=== PATIENT | female | born 1985 | race Caucasian/White ===

== ENCOUNTER 2017-06-12 10:17 | Emergency (ER) | payer MEDICAID ==
[2017-06-12 12:23] LABS: microscopic required? YES
[2017-06-12 12:24] LABS: urine erythrocyte TRACE (NEGATIVE)
[2017-06-12 13:54] VITALS: BP 113/85
== END 2017-06-12 13:54 | disposition home or self-care (01) ==
LOC: ED 10:17
PROVIDERS: Emergency Medicine
DX: N72 Inflammatory disease of cervix uteri (principal); Z79.3 Long term (current) use of hormonal contraceptives
CPT/HCPCS: 36415; 82962; 87491; 87591; J0696

== ENCOUNTER 2017-10-05 19:15 | Emergency (ER) | payer MEDICAID ==
[~2017-10-05] VITALS: Ht 162.6 cm; Wt 68.5 kg
[2017-10-05 19:26] VITALS: Ht 162.6 cm; Wt 68.5 kg
[2017-10-05 22:53] VITALS: BP 111/70
== END 2017-10-05 22:53 | disposition home or self-care (01) ==
LOC: ED 19:15
DX: J04.0 Acute laryngitis (principal)